=== PATIENT | male | born 1975 | race Asian ===

== ENCOUNTER 2016-08-14 20:02 | Emergency (ER) | payer OTHER ==
[~2016-08-14] VITALS: Ht 172.7 cm; Wt 70.0 kg
[~2016-08-14 20:02] MED LIST: SIMV40TA PO
[2016-08-14 20:04] VITALS: BP 166/94; PULSE 98; RESP 18; TEMP 97.9; O2SAT 98
[2016-08-14 20:16] VITALS: BP 159/90; PULSE 99; RESP 14; O2SAT 100
[2016-08-14] MEDS ORDERED: CIPR500T2 PO (20:22)
[2016-08-14] MEDS ORDERED: NAPR550T3 PO (20:23)
[2016-08-14] MEDS ORDERED: PROM25TA5 PO (20:23)
[2016-08-14] MEDS ORDERED: HYDR-3516 PO (20:23)
[2016-08-14] MEDS ORDERED: KETOROLAC TROMETHAMINE 30 MG/ML (IVP) VIAL IV PUSH ONE (21:15)
--- NOTE | 2016-08-14 21:17 | PD ---
HPI Chief Complaint: Skin Problem Time Seen by Provider: 20:48 Travel History International Travel<30 days: No Contact w/Intl Traveler<30days: No Traveled to known affect area: No History of Present Illness HPI 41-year-old male complains of groin pain and testicular pain and penile pain. Patient states that the pain started about 9 months ago. Patient has been seen by personal physician and urologist. Patient started seeing Dr. Mares, urologist, a few months ago. Patient was put on antibiotic at that time. Patient states that he had persistent pain and was seen by personal physician and another urologist in [place]. Patient was put on Levaquin about a week ago. Patient states that he was seen by personal physician a few days ago and Levaquin was switched to Cipro. Patient states that he has persistent pain to the groin area, the scrotum area and penis area despite taking the medication. Patient denies any fever chills. Patient denies any dysuria or frequency. Patient denies any back pain. Patient states the pain is sharp stabbing pain started around the penis and scrotum area with radiation to the lower abdomen pelvic area. Patient denies any recent injury to the area. Patient states that he had testicular ultrasound in the past which was normal. On a scale of 1-10 the pain is a 10. PFSH Past Medical History High Cholesterol: Yes Influenza Vaccination: No Past Surgical History Surgical History: No Previous Surgery Social History Alcohol Use: Yes (once a week) Tobacco Use: Yes (1/2 PPD) Substance Use: No Allergies-Medications (Allergen,Severity, Reaction): Coded Allergies: No Known Allergies (Unverified , 08/14/16) Reported Meds & Prescriptions Reported Meds & Active Scripts Active Reported Phenergan (Promethazine HCl) 25 Mg Tab 25 Mg PO TID PRN Naproxen Sodium DS (Naproxen Sodium) 550 Mg Tab 550 Mg PO BID Hydrocodone-Acetaminophen 5-325 mg Tab 1 Tab PO Q4H PRN Ciprofloxacin (Ciprofloxacin HCl) 500 Mg Tab 500 Mg PO BID Simvastatin 40 Mg Tab 40 Mg PO HS Review of Systems General / Constitutional: No: Fever Eyes: No: Visual changes HENT: No: Headaches Cardiovascular: No: Chest Pain or Discomfort Respiratory: No: Shortness of Breath Gastrointestinal: No: Abdominal Pain Genitourinary: Positive: Pelvic Pain, No: Dysuria Musculoskeletal: No: Pain Skin: No Rash Neurologic: No: Weakness Psychiatric: No: Depression Endocrine: No: Polydipsia Hematologic/Lymphatic: No: Easy Bruising Physical Exam Narrative GENERAL: Well-nourished, well-developed patient. SKIN: Warm and dry. HEAD: Normocephalic. EYES: No scleral icterus. No injection or drainage. NECK: Supple, trachea midline. No JVD or lymphadenopathy. CARDIOVASCULAR: Regular rate and rhythm without murmurs, gallops, or rubs. RESPIRATORY: Breath sounds equal bilaterally. No accessory muscle use. GASTROINTESTINAL: Abdomen soft, non-tender, nondistended. MUSCULOSKELETAL: No cyanosis, or edema. BACK: Nontender without obvious deformity. No CVA tenderness. exam: Patient has diffuse tenderness over the penis, scrotum, testicle and pubic area. No redness no swelling or deformity noted. No penile discharge or lesion noted. Data Data Last Documented VS Vital Signs Date Time Temp Pulse Resp B/P Pulse Ox O2 Delivery O2 Flow Rate FiO2 08/14/16 20:16 99 14 159/90 100 Room Air 08/14/16 20:04 97.9 Orders Complete Blood Count With Diff (08/14/16 21:06) Comprehensive Metabolic Panel (08/14/16 21:06) C-Reactive Protein (Crp) (08/14/16 21:06) Urinalysis - C+S If Indicated (08/14/16 21:06) [place] Sedimentation Rate (08/14/16 21:06) Iv Access Insert/Monitor (08/14/16 21:06) Ecg Monitoring (08/14/16 21:06) Oximetry (08/14/16 21:06) Us Testicles W Doppler (08/14/16 21:06) Ketorolac Inj (Toradol Inj) (08/14/16 21:15) Labs Laboratory Tests Test 08/14/16 08/14/16 21:10 21:20 Urine Color LIGHT-YELLOW Urine Turbidity CLEAR Urine pH 7.0 Urine Specific [place] 1.004 Urine Protein NEG mg/dL Urine Glucose (UA) NEG mg/dL Urine Ketones NEG mg/dL Urine Occult Blood NEG Urine Nitrite NEG Urine Bilirubin NEG Urine Urobilinogen LESS THAN 2.0 MG/DL Urine Leukocyte Esterase NEG Urine WBC LESS THAN 1 /hpf Microscopic Urinalysis Comment CULT NOT INDICATED White Blood Count 8.9 TH/MM3 Red Blood Count 4.69 MIL/MM3 Hemoglobin 14.8 GM/DL Hematocrit 42.8 % Mean Corpuscular Volume 91.1 FL Mean Corpuscular Hemoglobin 31.5 PG Mean Corpuscular Hemoglobin 34.6 % Concent Red Cell Distribution Width 13.3 % Platelet Count 216 TH/MM3 Mean Platelet Volume 10.2 FL Neutrophils (%) (Auto) 59.0 % Lymphocytes (%) (Auto) 31.3 % Monocytes (%) (Auto) 5.2 % Eosinophils (%) (Auto) 4.0 % Basophils (%) (Auto) 0.5 % Neutrophils # (Auto) 5.3 TH/MM3 Lymphocytes # (Auto) 2.8 TH/MM3 Monocytes # (Auto) 0.5 TH/MM3 Eosinophils # (Auto) 0.4 TH/MM3 Basophils # (Auto) 0.0 TH/MM3 CBC Comment DIFF FINAL Differential Comment Sodium Level 143 MEQ/L Potassium Level 4.3 MEQ/L Chloride Level 108 MEQ/L Carbon Dioxide Level 29.8 MEQ/L Anion Gap 5 MEQ/L Blood Urea Nitrogen 10 MG/DL Creatinine 1.07 MG/DL Estimat Glomerular Filtration 75 ML/MIN Rate Random Glucose 90 MG/DL Calcium Level 9.1 MG/DL Total Bilirubin 0.5 MG/DL Aspartate Amino Transf 19 U/L (AST/SGOT) Alanine Aminotransferase 22 U/L (ALT/SGPT) Alkaline Phosphatase 46 U/L C-Reactive Protein LESS THAN 0.29 MG/DL Total Protein 7.0 GM/DL Albumin 4.1 GM/DL [facility] Medical Decision Making Medical Screen Exam Complete: Yes Emergency Medical Condition: Yes Interpretation(s) 22:26 PM. CBC within normal limit. Platelet 123. UA is negative. 22:49 PM. Testicular ultrasound shows no evidence of torsion. Small bilateral epididymal cyst. Trace Right hydrocele. 22:51 PM. CMP within normal limit. C-reactive protein less than 0.29. Differential Diagnosis Differential diagnosis including chronic pain, epididymitis orchitis, cellulitis , abscess, testicular torsion. Narrative Course 41-year-old male complains of testicular pain, penile pain, scrotal pain, pelvic pain. The pain has been chronic for the past 9 months. Patient has been seen by urologist and put on multiple course of antibiotic. Diagnosis Primary Impression: Testicular pain, unspecified Patient Instructions: General Instructions Additional Instructions: Mobic as needed for pain. Follow with personal physician and urologist. Return if worse. Med/Other Pt SpecificInfo: Prescription(s) given Scripts Meloxicam (Mobic)15 Mg Tab15 Mg PO DAILY #20 TAB Prov:Juan Manuel Price MD 08/14/16 Disposition: 01 DISCHARGE HOME Condition: Stable Juan Manuel Price MD Aug 14, 2016 21:17
[2016-08-14 21:55] LABS: AUTOMATED NEUTROPHIL # 5.3 TH/MM3 (1.8-7.7); BASOPHIL % 0.5 % (0.0-2.0); EOSINOPHIL # 0.4 TH/MM3 (0-0.4); HEMATOCRIT 42.8 % (39.0-51.0); HEMO FLAGS DIFF FINAL; LYMPH % 31.3 % (9.0-44.0); LYMPHOCYTE # 2.8 TH/MM3 (1.0-4.8); MEAN CELL VOLUME 91.1 FL (80.0-100.0); MEAN CORPUSCULAR HEMOGLOBIN 31.5 PG (27.0-34.0); MEAN CORPUSCULAR HGB CONC 34.6 % (32.0-36.0); MONO % 5.2 % (0.0-8.0); RED BLOOD COUNT 4.69 MIL/MM3 (4.50-5.90); RED CELL DISTRIBUTION WIDTH 13.3 % (11.6-17.2); WHITE BLOOD COUNT 8.9 TH/MM3 (4.0-11.0)
[2016-08-14 22:07] LABS: BLOOD, URINE NEG (NEG); GLUCOSE,URINE NEG (NEG); KETONE, URINE NEG (NEG); NITRITE,URINE NEG (NEG); URINE COLOR LIGHT-YELLOW (YELLW/STRAW)
[2016-08-14 22:18] LABS: COMMENT (UR) CULT NOT INDICATED; CULTURE IF INDICATED CULT NOT INDICATED
[2016-08-14 22:30] LABS: ALKALINE PHOSPHATASE 46 U/L (45-117); TOTAL BILIRUBIN ADULT 0.5 MG/DL (0.2-1.0)
[2016-08-14 22:31] LABS: ALT (GPT) 22 U/L (12-78); ANION GAP 5 MEQ/L (5-15); AST (GOT) 19 U/L (15-37); BICARBONATE 29.8 MEQ/L (21.0-32.0); BLOOD UREA NITROGEN 10 MG/DL (7-18); CHLORIDE 108 MEQ/L (98-107); GLOMERULAR FILTRATION RATE 75 ML/MIN (>89); POTASSIUM 4.3 MEQ/L (3.5-5.1); SODIUM (NA) 143 MEQ/L (136-145)
[2016-08-14 22:45] LABS: PLATELET COUNT 216 TH/MM3 (150-450)
--- NOTE | 2016-08-14 22:45 | RADRPT ---
EXAM DATE/TIME: 08/14/2016 21:46 [facility] COMPARISON: No previous studies available for comparison. INDICATIONS : Bilateral scrotal pain. MEDICAL HISTORY : Hypercholesterolemia. Scrotal and penile pain x 9 months. SURGICAL HISTORY : None. ENCOUNTER: Initial ACUITY: 7 - 11 months PAIN SCORE: 9/10 LOCATION: Bilateral scrotum. MEASUREMENTS: RIGHT TESTICLE: 3.8 x 2.5 x 1.8cm LEFT TESTICLE: 3.6 x 2.5 x 1.7cm FINDINGS: Testicles are within normal limits without mass. Bilateral subcentimeter epididymal cysts present. Tr samantha right-sided hydrocele and testicular blood flow bilaterally. CONCLUSION: 1. Positive testicular blood flow without evidence for torsion. Small bilateral epididymal cysts. Tra ce right hydrocele. Olu Perdomo MD on August 14, 2016 at 22:43 Board Certified Radiologist. This report was verified electronically.
[2016-08-14] MEDS ORDERED: MOBI15TA PO (22:57)
[2016-08-14 23:03] VITALS: BP 133/81
== END 2016-08-14 23:10 | disposition home or self-care (01) ==
LOC: NEPC 20:02
DX: N50.819 Testicular pain, unspecified (principal); N48.89 Other specified disorders of penis; E78.00 Pure hypercholesterolemia, unspecified; F17.200 Nicotine dependence, unspecified, uncomplicated
CPT/HCPCS: 76870; 80053; 81001; 85025; 85652; 86140; 93975; 96374; 99284; J1885

== ENCOUNTER 2016-08-16 23:41 | Emergency (ER) | payer OTHER ==
[~2016-08-16] VITALS: Ht 172.7 cm; Wt 43.0 kg
[~2016-08-16 23:41] MED LIST changes: +CIPR500T2 PO; +HYDR-3516 PO; +MOBI15TA PO; +NAPR550T3 PO; +PROM25TA5 PO
[2016-08-16 23:44] VITALS: BP 161/95; PULSE 104; RESP 16; TEMP 97.3
--- NOTE | 2016-08-17 08:16 | PD ---
HPI Chief Complaint: Complaint Time Seen by Provider: 07:58 Travel History International Travel<30 days: No Contact w/Intl Traveler<30days: No Traveled to known affect area: No History of Present Illness HPI This is a 41-year-old male who was seen here 3 days ago for testicular, penile, scrotal pain. The patient had an ultrasound and blood work and urinalysis done at that time. There is no obvious acute findings other than a hydrocele and epididymal cyst. Patient presents today stating the pain is still a 10 out of 10. He reports it's in his scrotum and radiates to his hip. He denies any fevers, chills. He does state that he's lost his appetite but denies any nausea vomiting diarrhea. The patient does appear to be somewhat developmentally delayed and keeps insisting on us having a urologist come down and evaluate him. I informed him that at this point unless there is something obviously objective that would require urologist, they don't randomly come down to the emergency department. [facility] Past Medical History Medical History: Denies Significant Hx High Cholesterol: Yes Immunizations Current: Yes Tetanus Vaccination: < 5 Years Past Surgical History Surgical History: No Previous Surgery Social History Alcohol Use: Yes (once a week) Tobacco Use: Yes (1/2 PPD) Substance Use: No Allergies-Medications (Allergen,Severity, Reaction): Coded Allergies: No Known Allergies (Unverified , 08/14/16) Reported Meds & Prescriptions Reported Meds & Active Scripts Active Reported Simvastatin 40 Mg Tab 40 Mg PO HS Review of Systems Except as stated in HPI: all other systems reviewed are Neg General / Constitutional: No: Fever, Chills HENT: No: Headaches Cardiovascular: No: Chest Pain or Discomfort Respiratory: No: Cough, Wheezing Gastrointestinal: No: Nausea, Vomiting Genitourinary: Positive: Pelvic Pain, Other (today pain is in his scrotum and radiates to his left hip area.) Musculoskeletal: Positive: Pain (pain rating to the left hip area from his scrotum.), No: Weakness Physical Exam Narrative GENERAL: Well-nourished, well-developed patient. SKIN: Focused skin assessment warm/dry. HEAD: Normocephalic/atraumatic. EYES: No scleral icterus. No injection or drainage. NECK: Supple, trachea midline. No JVD or lymphadenopathy. CARDIOVASCULAR: Regular rate and rhythm without murmurs, gallops, or rubs. RESPIRATORY: Breath sounds equal bilaterally. No accessory muscle use. GASTROINTESTINAL: Abdomen soft, non-tender, nondistended. GENITOURINARY: Circumcised. Testes descended bilaterally without evidence of rotation. No lesions or erythema. No urethral discharge. MUSCULOSKELETAL: No cyanosis, or edema. NEUROLOGICAL: Awake and alert. Cranial nerves II through XII intact. Motor grossly within normal limits. Five out of 5 muscle strength in all muscle groups. Normal speech. Data Data Last Documented VS Vital Signs Date Time Temp Pulse Resp B/P Pulse Ox O2 Delivery O2 Flow Rate FiO2 08/17/16 08:17 98.4 77 16 146/[address] Abd/Pel W Iv Contrast(Rout) (08/17/16 08:07) MDM Medical Decision Making Medical Screen Exam Complete: Yes Emergency Medical Condition: Yes Differential Diagnosis Prostatitis versus testicular torsion versus pelvic infection Narrative Course 41-year-old male who presents 3 days after previous visit for testicular discomfort. The patient was seen and evaluated on 08/14 for the same complaint. The patient had an ultrasound and laboratory tests including urine. The patient had no acute findings on exam. There was a hydrocele and some epididymal cyst. He is here demanding to see a urologist. I discussed with him that we do not call the urologist down to the emergency department for nonemergent conditions. He reports that he has an appointment in January for follow up with his urologist. I did ask if he hit seen the urologist and he stated he had not seen him. Upon speaking with Dr. Ariel Mares, he reports that he saw this patient 20 days ago. The patient does appear to be developmentally delayed and possibly had a difficult time understanding the process. I did order a CT scan to rule out any acute pelvic pathology and there is no acute findings noted. The findings were discussed with the patient and he was informed that the urologist will not come to the emergency department at this point. He is busy seeing patients and is familiar with the patient and will see him in the office on a scheduled appointment. Again, there is no urologic emergency at this point. The patient will be discharged and told to follow up as an outpatient. He is instructed to wear jockey shorts for testicular support. He is also instructed to use Motrin as previously commended by the urologist. Diagnosis Primary Impression: Testicular pain, unspecified Additional Instructions: Follow up with urologist as an outpatient. Wear jockey shorts force testicular support. Motrin as needed for pain. Disposition: 01 DISCHARGE HOME Condition: Stable Sean Monge MD Aug 17, 2016 08:16
[2016-08-17 08:17] VITALS: BP 146/87; PULSE 77; RESP 16; TEMP 98.4; O2SAT 98
--- NOTE | 2016-08-17 09:54 | RADRPT ---
EXAM DATE/TIME: 08/17/2016 09:17 [facility] COMPARISON: No previous studies available for comparison. INDICATIONS : Severe scrotal and pelvic pain. IV CONTRAST: 85 cc Omnipaque 350 (iohexol) IV ORAL CONTRAST: No oral contrast ingested. RADIATION DOSE: 4.81 CTDIvol (mGy) MEDICAL HISTORY : None SURGICAL HISTORY : None. ENCOUNTER: Initial ACUITY: 3 days PAIN SCALE: 10/10 LOCATION: pelvis TECHNIQUE: Volumetric scanning of the abdomen and pelvis was performed. Using automated exposure control and ad justment of the mA and/or kV according to patient size, radiation dose was kept as low as reasonably achievable to obtain optimal diagnostic quality images. FINDINGS: LOWER LUNGS: The visualized lower lungs are clear. LIVER: Homogeneous density without lesion. There is no dilation of the biliary tree. No calcified gallston es. SPLEEN: Normal size without lesion. PANCREAS: Within normal limits. KIDNEYS: Normal in size and shape. There is no mass, stone or hydronephrosis. ADRENAL GLANDS: Within normal limits. VASCULAR: There is no aortic aneurysm. BOWEL/MESENTERY: No evidence of bowel dilatation. No free air or free fluid. Likely appendix is seen and it is within normal limits. Scattered colonic diverticula but no evidence of acute diverticulitis. ABDOMINAL WALL: Within normal limits. RETROPERITONEUM: There is no lymphadenopathy. BLADDER: No wall thickening or mass. REPRODUCTIVE: Prostate is enlarged measuring 4.9 cm. INGUINAL: There is no lymphadenopathy or hernia. MUSCULOSKELETAL: Within normal limits for patient age. CONCLUSION: 1. No acute findings in the abdomen or pelvis. 2. Enlarged prostate. 3. Scattered colonic diverticula but no evidence of acute diverticulitis. Andre Freed MD on August 17, 2016 at 9:44 Board Certified Radiologist. This report was verified electronically.
[2016-08-17 10:27] VITALS: BP 154/86; PULSE 78; RESP 16; O2SAT 97
[2016-08-17] MEDS ORDERED: ULTR50TA5 PO (10:28)
[2016-08-17] MEDS ORDERED: IOHEXOL 350 MG/ML 10 ML VIAL (for RAD DIAG) IV ONE (11:14)
== END 2016-08-17 10:50 | disposition home or self-care (01) ==
LOC: NEPE 23:41
DX: N50.819 Testicular pain, unspecified (principal); E78.00 Pure hypercholesterolemia, unspecified; F17.210 Nicotine dependence, cigarettes, uncomplicated
CPT/HCPCS: 74177; 99284; Q9967